=== PATIENT | female | born 1965 | race Caucasian/White ===

== ENCOUNTER 2018-12-10 04:30 | Emergency (ER) | payer MEDICARE, OTHER ==
[2018-12-10 06:11] LABS: ADD MAN DIFF? NO
[2018-12-10 06:15] LABS: WHITE BLOOD COUNT 8.1 10^3/ul (4.8-10.8)
[2018-12-10 06:15] LABS: BASOPHIL # 0.1 10^3/ul (0.0-0.1); BASOPHILS % 0.9 % (0.0-2.0); EOSINOPHILS # 0.2 10^3/ul (0.0-0.5); EOSINOPHILS % 2.2 % (0.0-7.0); HEMATOCRIT 37.5 % (37.0-47.0); HEMOGLOBIN 12.5 g/dl (12.0-16.0); LYMPHOCYTES # 2.5 10^3/ul (0.8-2.9); LYMPHOCYTES % 30.2 % (15.0-51.0); MEAN CORPUSCULAR HEMOGLOBIN 28.5 pg (29.0-33.0); MEAN CORPUSCULAR HGB CONC 33.3 g/dl (32.0-37.0); MEAN CORPUSCULAR VOLUME 85.4 fl (82.0-101.0); MEAN PLATELET VOLUME 11.9 fl (7.4-10.4); MONOCYTE # 0.6 10^3/ul (0.3-0.9); MONOCYTES % 7.4 % (0.0-11.0); NEUTROPHIL # 4.8 10^3/ul (1.6-7.5); NEUTROPHILS % 59.1 % (39.0-77.0); PLATELET COUNT 241 10^3/UL (140-415); RED BLOOD COUNT 4.39 10^6/ul (4.20-5.40); RED CELL DISTRIBUTION WIDTH 15.3 % (11.5-14.5)
[2018-12-10 06:26] LABS: INR 2.43; PROTIME 26.5 Sec (11.9-14.9); PT RATIO 2.1
[2018-12-10 06:27] LABS: PARTIAL THROMBOPLASTIN TIME 37.5 Sec (23.0-35.0)
[2018-12-10 06:45] LABS: ANION GAP 9 (5-13); BLOOD UREA NITROGEN 21 mg/dl (7-20); CALCIUM 9.2 mg/dl (8.4-10.2); CARBON DIOXIDE 27 mmol/L (21-31); CHLORIDE 106 mmol/L (97-110); CHOL/HDL RATIO 3.2 RATIO; CHOLESTEROL 185 mg/dl (100-200); CREATININE 0.78 mg/dl (0.44-1.00); Estimated GFR > 60 mL/min (>60); GLUCOSE 113 mg/dl (70-220); HDL CHOLESTEROL 57 mg/dl (37-92); LDL CHOLESTEROL,CALCULATED 116 mg/dl; SODIUM 142 mmol/L (135-144); TRIGLYCERIDES 58 mg/dl (0-149)
[2018-12-10 06:48] LABS: ADD UMIC YES; UR ASCORBIC ACID NEGATIVE (NEGATIVE); UR BILIRUBIN (Dip) NEGATIVE (NEGATIVE); UR BLOOD (Dip) 1+ mg/dL (NEGATIVE); UR CLARITY CLEAR (CLEAR); UR COLOR STRAW (YELLOW); UR GLUCOSE (Dip) NEGATIVE (NEGATIVE); UR KETONES (Dip) NEGATIVE (NEGATIVE); UR LEUKOCYTE ESTERASE (Dip) NEGATIVE Leu/ul (NEGATIVE); UR NITRITE (Dip) NEGATIVE (NEGATIVE); UR RBC 1 /HPF (0-5); UR SPECIFIC GRAVITY (Dip) 1.009 (1.003-1.030); UR TOTAL PROTEIN (Dip) NEGATIVE (NEGATIVE); UR UROBILINOGEN (Dip) NEGATIVE (NEGATIVE); UR WBC 0 /HPF (0-5)
[2018-12-10] MEDS: KETOROLAC 30 MG INJ IV (06:53)
[2018-12-10 06:55] LABS: TROPONIN-I < 0.012 ng/ml (0.000-0.120)
[2018-12-10 07:17] LABS: AMPHETAMINE/METHAMPHETAMINE Negative (NEGATIVE); BARBITURATES Negative (NEGATIVE); BENZODIAZEPINES Negative (NEGATIVE); CANNABINOIDS Negative (NEGATIVE); COCAINE Negative (NEGATIVE); OPIATES Positive (NEGATIVE)
[2018-12-10 07:25] LABS: HEMOGLOBIN A1C 5.7 % (0-5.9)
== END 2018-12-10 08:50 | disposition home or self-care (01) ==
LOC: FTE 04:30 → E/R 08:50
DX: M79.602 Pain in left arm (principal); Z79.01 Long term (current) use of anticoagulants; Z86.73 Personal history of transient ischemic attack (TIA), and cerebral infarction without residual deficits
CPT/HCPCS: 36415; 70450; 71045; 80048; 80061; 80307; 81001; 82962; 83036; 84484; 85025; 85610; 85730; 93005; 96374; 99285-25

== ENCOUNTER 2019-02-27 12:42 | Emergency (ER) | payer MEDICARE, OTHER | END 2019-02-27 14:32 | disposition home or self-care (01) | LOC: FTE 12:42 | DX: S92.511A Displaced fracture of proximal phalanx of right lesser toe(s), initial encounter for closed fracture (principal); W22.8XXA Striking against or struck by other objects, initial encounter; Y92.9 Unspecified place or not applicable; Z79.01 Long term (current) use of anticoagulants; Z86.73 Personal history of transient ischemic attack (TIA), and cerebral infarction without residual deficits | CPT/HCPCS: 73630; 99283-25 ==